=== PATIENT | female | born 1995 | race Caucasian/White ===

== ENCOUNTER 2021-02-14 21:07 | Emergency (ER) | payer BC ==
[2021-02-14 22:47] LABS: Basophils % 0.3 % (0-1.3); Hematocrit 36.7 % (36.0-45.0); Lymphocytes % 14.1 % (15.3-44.8); MPV 9.1 fL (7.6-11.3); Protime INR 0.88; RBC Red Blood Cell Count 4.15 M/uL (3.86-4.86)
[2021-02-14 23:00] LABS: ALT/SGPT 48 U/L (12-78); AST/SGOT 43 U/L (15-37); Albumin 2.7 g/dL (3.4-5.0); Alkaline Phosphatase 169 U/L (45-117); BUN Blood Urea Nitrogen 9 mg/dL (7-18); Bicarbonate 21 mmol/L (21-32); Bilirubin Direct 0.2 mg/dL (0-0.2); Bilirubin Total 0.3 mg/dL (0.2-1.0); Glucose Level 77 mg/dL (74-106); Magnesium 1.9 mg/dL (1.8-2.4); NT PRO-BNP 23 pg/mL (<125); Potassium 3.6 mmol/L (3.5-5.1); Protein, Total 7.1 g/dL (6.4-8.2); Sodium Level 141 mmol/L (136-145); Troponin (Emerg Dept Use Only) < 0.02 ng/mL (0.0-0.045)
--- NOTE | 2021-02-15 01:11 | ER ---
Nurse's Notes [facility] Name: Dat Cota Age: 25 yrs Sex: Female : 1995 Arrival Date: 02/14/2021 Time: 21:11 Bed 28 Private MD: Diagnosis: Coronavirus infection, unspecified;Chest pain, unspecified Presentation: 02/14 21:23 Chief complaint: Patient states: Covid+ 02/08/2021. 36 weeks.. SOB x 2 - 3 day. 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 Coronavirus screen: Client denies travel out of the [place] in the last 14 days. Client reports previous positive COVID test result. Date of collection: February 08, 2021 Staff notified of need for isolation. Ebola Screen: Patient negative for fever greater than or equal to 101.5 degrees Fahrenheit, and additional compatible Ebola Virus Disease symptoms Patient denies exposure to infectious person. Patient denies travel to an Ebola-affected area in the 21 days before illness onset. No symptoms or risks identified at this time. Initial Sepsis Screen: Does the patient meet any 2 criteria? No. Patient's initial sepsis screen is negative. Does the patient have a suspected source of infection? No. Patient's initial sepsis screen is negative. Risk Assessment: Do you want to hurt yourself or someone else? Patient reports no desire to harm self or others. Onset of symptoms was February 08, 2021. 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 - Social history:: Smoking status: Patient denies any tobacco usage or history of. Screenin:05 Abuse screen: Denies threats or abuse. Denies injuries from another. Nutritional ld1 screening: No deficits noted. Tuberculosis screening: No symptoms or risk factors identified. Fall Risk None identified. Assessment: 22:05 General: Appears in no apparent distress. comfortable, Behavior is calm, cooperative, ld1 appropriate for age. Pain: Complains of pain in epigastric area Pain does not radiate. Pain currently is 8 out of 10 on a pain scale. Quality of pain is described as stabbing, Pain began 4 hours ago. Is continuous. Neuro: Level of Consciousness is awake, alert, obeys commands, Oriented to person, place, time, situation. Cardiovascular: Capillary refill < 3 seconds Patient's skin is warm and dry. Respiratory: Airway is patent Respiratory effort is even, unlabored, Respiratory pattern is regular, symmetrical. GI: Abdomen is round non-distended. : No signs and/or symptoms were reported regarding the genitourinary system. EENT: No signs and/or symptoms were reported regarding the EENT system. Derm: No signs and/or symptoms reported regarding the dermatologic system. Musculoskeletal: No signs and/or symptoms reported regarding the musculoskeletal system. 23:19 Reassessment: Patient appears in no apparent distress at this time. No changes from ld1 previously documented assessment. Patient and/or family updated on plan of care and expected duration. Pain level reassessed. Patient is alert, oriented x 3, equal unlabored respirations, skin warm/dry/pink. Vital Signs: 21:23 BP 115 / 74; Pulse 92; Resp 16 S; Temp 97.3(TE); Pulse Ox 98% on R/A; Weight 97.07 kg ca1 (R); Height 5 ft. 10 in. (177.80 cm) (R); Pain 6/10; 22:05 BP 105 / 70; Pulse 95; Resp 13; Pulse Ox 99% on R/A; ld1 23:19 BP 101 / 70; Pulse 104; Resp 17; Pulse Ox 99% on R/A; ld1 02/15 01:15 BP 115 / 68; Pulse 84; Resp 16; Pulse Ox 98% on R/A; ak2 08 21:23 Body Mass Index 30.71 (97.07 kg, 177.80 cm) ca1 ED Course: 02/14 21:11 Patient arrived in ED. bp1 21:25 Triage completed. ca1 21:25 Arm band placed on right wrist. ca1 21:26 EKG completed in triage. Results shown to MD. ca1 21:51 Richa Duggan, RAQUEL is Primary Nurse. ld1 22:04 Guillermo Nuñez NP is PHCP. pm1 22:04 Patrick Parisi MD is Attending Physician. pm1 22:05 Patient has correct armband on for positive identification. Bed in low position. Call ld1 light in reach. Side rails up X2. teletypesetter monitor on. Pulse ox on. NIBP on. Door closed. Noise minimized. Warm blanket given. 22:05 No provider procedures requiring assistance completed. Patient maintains SpO2 ld1 saturation greater than 95% on room air. 22:44 XRAY Chest (1 view) In Process Unspecified. EDMS Administered Medications: No medications were administered Outcome: 02/15 01:15 AMA AMA form signed ak2 Condition: good 01:16 Patient left the ED. ak2 Signatures: Dispatcher [employer] EDMS Guillermo Nuñez NP STOPPER MAKER HELPER pm1 Alicia Perales RN RN Mirlande Morgan Lauren, RN RN ld1 Waqas Srivastava ak2
--- NOTE | 2021-02-15 01:11 | EDPHYS ---
Physician Documentation [facility] Name: Dat Cota Age: 25 yrs Sex: Female : 1995 Arrival Date: 02/14/2021 Time: 21:11 Bed 28 Private MD: ED Physician Patrick Parisi HPI: 02/14 22:07 This 25 yrs old Female presents to ER via Ambulatory with complaints of Chest pm1 Pain. 22:07 The patient or guardian reports chest pain that is located primarily in the diaphragm. pm1 The pain does not radiate. Associated signs and symptoms: Pertinent positives: cough, shortness of breath, Pertinent negatives: abdominal pain, headache, nausea, vomiting. Duration: The patient or guardian reports a single episode, that is still ongoing. Modifying factors: The symptoms are alleviated by nothing. the symptoms are aggravated by cough. The patient has not experienced similar symptoms in the past. The patient has not recently seen a physician. diagnosed covid positive 02/08. Patient with onset of shortness of breath 3 days ago. 36 weeks . 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 - Social history:: Smoking status: Patient denies any tobacco usage or history of. ROS: 22:07 Constitutional: Negative for fever, chills, and weight loss, Eyes: Negative for injury, pm1 pain, redness, and discharge, ENT: Negative for injury, pain, and discharge. 22:07 Abdomen/GI: Negative for abdominal pain, nausea, vomiting, diarrhea, and constipation, Back: Negative for injury and pain, : Negative for injury, bleeding, discharge, and swelling, MS/Extremity: Negative for injury and deformity, Skin: Negative for injury, rash, and discoloration, Neuro: Negative for headache, weakness, numbness, tingling, and seizure. 22:07 Cardiovascular: Positive for chest pain, Negative for edema, palpitations. 22:07 Respiratory: Positive for cough, shortness of breath. 22:07 All other systems are negative. Exam: 22:07 Constitutional: This is a well developed, well nourished patient who is awake, alert, pm1 and in no acute distress. Head/Face: Normocephalic, atraumatic. Cardiovascular: Regular rate and rhythm with a normal S1 and S2. No gallops, murmurs, or rubs. Normal PMI, no JVD. No pulse deficits. Respiratory: Lungs have equal breath sounds bilaterally, clear to auscultation and percussion. No rales, rhonchi or wheezes noted. No increased work of breathing, no retractions or nasal flaring. 22:07 Back: No spinal tenderness. No costovertebral tenderness. Full range of motion. Skin: Warm, dry with normal turgor. Normal color with no rashes, no lesions, and no evidence of cellulitis. MS/ Extremity: Pulses equal, no cyanosis. Neurovascular intact. Full, normal range of motion. 22:07 Eyes: Exam is negative for acute changes, Extraocular movements: no acute changes. 22:07 ENT: Exam is negative for acute changes, Mouth: Lips: normal, Oral mucosa: normal, pink and intact, moist. 22:07 Abdomen/GI: Inspection: gravid appearance, is noted, Palpation: abdomen is soft and non-tender, in all quadrants. 22:07 Neuro: Exam negative for acute changes, Orientation: is normal, Mentation: is normal, Motor: is normal, moves all fours. Vital Signs: 21:23 BP 115 / 74; Pulse 92; Resp 16 S; Temp 97.3(TE); Pulse Ox 98% on R/A; Weight 97.07 kg ca1 (R); Height 5 ft. 10 in. (177.80 cm) (R); Pain 6/10; 22:05 BP 105 / 70; Pulse 95; Resp 13; Pulse Ox 99% on R/A; ld1 23:19 BP 101 / 70; Pulse 104; Resp 17; Pulse Ox 99% on R/A; ld1 02/15 01:15 BP 115 / 68; Pulse 84; Resp 16; Pulse Ox 98% on R/A; ak2 02/14 21:23 Body Mass Index 30.71 (97.07 kg, 177.80 cm) ca1 MDM: 02/14 22:16 Data reviewed: I have discussed the patient's presentation/case with the attending pm1 Emergency Department Physician; and as a result, I will CT scan chest r/o PE due to risk of and covid +. 22:55 Patient medically screened. pm1 23:12 Data reviewed: vital signs. Data interpreted: Pulse oximetry: on room air is 99 %. pm1 Interpretation: normal. 02/15 01:07 Refusal of service: The patient/guardian displays adequate decision making capability pm1 and despite a detailed discussion of alternatives, benefits, risks, and consequences refuses: CT Scan. 01:07 Counseling: I had a detailed discussion with the patient and/or guardian regarding: the pm1 historical points, exam findings, and any diagnostic results supporting the discharge/admit diagnosis, lab results, radiology results, the need for outpatient follow up, an OB/Gyne specialist, to return to the emergency department if symptoms worsen or persist or if there are any questions or concerns that arise at home. 01:07 ED course: explained to the patient the inability to rule out pulmonary emboli given pm1 the presence of covid and . patient does not want to get the CT scan due radiation exposure. Martha dietary tech present in the room during discussion. 02/14 22:07 Order name: Basic Metabolic Panel; Complete Time: 23:12 pm1 02/14 22:07 Order name: CBC with Diff; Complete Time: 22:55 pm1 02/14 22:07 Order name: LFT's; Complete Time: 23:12 pm1 03 22:07 Order name: Magnesium; Complete Time: 23:12 pm1 03 22:07 Order name: NT PRO-BNP; Complete Time: 23:12 pm1 02/14 22:07 Order name: PT-INR; Complete Time: 22:55 pm1 03 21:23 Order name: EKG; Complete Time: 21:23 ca1 02/14 21:23 Order name: EKG - Nurse/Tech; Complete Time: 21:23 ca1 02/14 22:07 Order name: Troponin (emerg Dept Use Only); Complete Time: 23:12 pm1 02/14 22:07 Order name: XRAY Chest (1 view) pm1 02/14 22:07 Order name: Cardiac monitoring; Complete Time: 22:08 pm1 02/14 22:07 Order name: IV Saline Lock; Complete Time: 22:34 pm1 08/03 22:07 Order name: Labs collected and sent; Complete Time: 22:34 pm1 02/14 22:07 Order name: O2 Per Protocol; Complete Time: 22:08 pm1 02/14 22:07 Order name: O2 Sat Monitoring; Complete Time: 22:08 pm1 Administered Medications: No medications were administered Disposition: 04:23 Co-signature as Attending Physician, Patrick Parisi MD. [email or web address] Disposition Summary: 02/15/21 01:10 Left Against Medical Advice Location: Home pm1 Problem: new pm1 Symptoms: have improved pm1 Condition: Stable pm1 Diagnosis - Coronavirus infection, unspecified pm1 - Chest pain, unspecified pm1 Followup: pm1 - With: Emergency Department - When: As needed - Reason: Worsening of condition Followup: pm1 - With: Private Physician - When: Upon discharge from the Emergency Department - Reason: Recheck today's complaints, Continuance of care, Re-evaluation by your physician Discharge Instructions: - Discharge Summary Sheet pm1 - Nonspecific Chest Pain, Adult pm1 - COVID-19 pm1 - Shortness of Breath, Adult pm1 Signatures: Dispatcher [employer] EDGuillermo Vidal, TABLEAU ARCHITECT TABLEAU ARCHITECT pm1 Alicia Perales RN RN ca1 Holmes, Maurice, MD MD [email or web address]
[2021-02-15 01:23] VITALS: TEMP 97.3
[2021-02-15 01:27] VITALS: BP 115/68; O2SAT 98
--- NOTE | 2021-02-15 07:41 | EKG ---
Test Date: 2021-02-14 Test Time: 21:20:58 Wood Tank Erector: KAREN MEASUREMENT RESULTS: Intervals: Rate: 98 [place]: 128 QRSD: 88 QT: 378 QTc: 482 North: P: 80 [place]: 128 QRS: 79 T: 76 INTERPRETIVE STATEMENTS: Normal sinus rhythm Normal ECG No previous ECG available for comparison Electronically Signed On 02-15-21 07:39:46 CDT by Juan Hernandez
--- NOTE | 2021-02-15 08:36 | RAD REPORT ---
EXAM DESCRIPTION: RAD - Chest Single View - 02/14/2021 10:44 pm CLINICAL HISTORY: CHEST PAIN Chest pain. COMPARISON: No comparisons FINDINGS: Portable technique limits examination quality. Subtle opacities are present in both lung bases suggesting mild viral infection/bronchitis. The heart is normal in size. No displaced fractures.
== END 2021-02-15 01:16 | disposition left against medical advice (07) ==
LOC: ER 21:07
DX: O98.513 Other viral diseases complicating pregnancy, third trimester (principal); U07.1 COVID-19; Z3A.36 36 weeks gestation of pregnancy
CPT/HCPCS: 36415; 71045; 80048; 80076; 83735; 83880; 84484; 85025; 85610; 93005; 99284